=== PATIENT | female | born 1970 | race Caucasian/White ===

== ENCOUNTER 2023-05-15 06:45 | Day surgery (SDC) | payer BC ==
[~2023-05-15] VITALS: Ht 160 cm; Wt 75.7 kg
[~2023-05-15 06:45] MED LIST: BIOFTAB PO; NS 1,000 ML IV ONE; PANT40TA29 PO; PEPC10TA6 PO
[2023-05-15] MEDS ORDERED: propofoL 200 MG/20 ML VIAL As Ordered ONE (07:00)
[2023-05-15] MEDS ORDERED: LIDOCAINE 2% 100MG/5ML SDV (FOR ANES.) As Ordered ONE (07:00)
[2023-05-15 08:21] VITALS: TEMP 97.6
[2023-05-15 08:38] VITALS: BP 135/67; O2SAT 100
== END 2023-05-15 08:52 | disposition home or self-care (01) ==
LOC: M OPP 06:45
PROVIDERS: ATTEND Surgery
DX: K31.89 Other diseases of stomach and duodenum (principal); K30 Functional dyspepsia